=== PATIENT | female | born 1990 | race Two or more races ===

== ENCOUNTER 2016-08-04 21:39 | Emergency (ER) | payer SELFPAY ==
[2016-08-04 22:44] LABS: SPECIFIC GRAVITY 1.025 (1.001-1.030); URINE BILIRUBIN NEGATIVE (NEGATIVE); URINE BLOOD 3+ (NEGATIVE); URINE GLUCOSE (UA) NEGATIVE (NEGATIVE); URINE LEUKOCYTE ESTERASE TRACE (NEGATIVE); URINE NITRITE NEGATIVE (NEGATIVE); URINE PROTEIN NEGATIVE (NEGATIVE); URINE UROBILINOGEN NORMAL (0-1 mg/dl)
[2016-08-04 22:46] LABS: URINE APPEARANCE HAZY; URINE COLOR YELLOW
[2016-08-04 22:48] LABS: HCG,QUALITATIVE URINE NEGATIVE
[2016-08-04 23:02] LABS: URINE BACTERIA 0
[2016-08-04] MEDS ORDERED: PROCHLORPERAZINE 5 MG/ML 2 ML VIAL ONE (23:15)
== END 2016-08-04 23:50 | disposition home or self-care (01) ==
LOC: ED 21:39
DX: R11.10 Vomiting, unspecified (principal); R19.7 Diarrhea, unspecified
CPT/HCPCS: 81025; 81001; 99283 ×2; 96372; J0780